=== PATIENT | male | born 1995 | race Caucasian/White ===

== ENCOUNTER 2017-11-02 00:43 | Emergency (ER) | payer SELFPAY ==
[~2017-11-02] VITALS: Ht 167.6 cm; Wt 87.7 kg
[2017-11-02] MEDS ORDERED: MECLIZINE 25MG TABLET PO ONE (01:45)
[2017-11-02 01:51] LABS: BASOPHILS % 0.6 % (0.0-2.0); EOSINOPHILS % 4.3 % (0.0-5.0); HEMATOCRIT. 43.1 % (42.0-52.0); HEMOGLOBIN. 14.7 g/dL (14.0-18.0); LYMPHOCYTES % 26.9 % (20.0-50.0); MEAN CORPUSCULAR HEMOGLOBIN 29.9 pg (28.0-32.0); MEAN CORPUSCULAR VOLUME 87.8 fL (80.0-94.0); MEAN PLATELET VOLUME 9.2 fl (7.4-10.4); NEUTROPHILS % 58.2 % (40.0-76.0); PLATELET 286 x1000/uL (130-400); RED BLOOD CELL COUNT 4.92 mill/uL (4.7-6.1); RED CELL DISTRIBUTION WIDTH 12.8 % (11.6-14.6)
[2017-11-02 01:54] LABS: CHLORIDE 106 mEq/L (98-107)
[2017-11-02 02:00] LABS: D-DIMER < 0.19 mg/L FEU (<0.50); INR 1.1; PARTIAL THROMBOPLASTIN TIME 26.7 sec (23.4-31.0)
[2017-11-02 04:16] VITALS: BP 107/60
== END 2017-11-02 04:18 | disposition home or self-care (01) ==
LOC: ER 00:43
DX: R42 Dizziness and giddiness (principal); R00.2 Palpitations
CPT/HCPCS: 36415; 71045; 80053; 83880; 84443; 85025; 85379; 85610; 85730; 93005; 99285; Z7610; J8597

== ENCOUNTER 2022-11-24 19:34 | Emergency (ER) | payer SELFPAY ==
[~2022-11-24] VITALS: Ht 172.7 cm; Wt 93.0 kg
[2022-11-24] MEDS ORDERED: KETOROLAC 60MG/2ML VIAL IM ONE (20:30)
[2022-11-24] MEDS ORDERED: IBUP-2028 MT (21:07)
[2022-11-24 21:34] VITALS: BP 127/78
== END 2022-11-24 21:35 | disposition home or self-care (01) ==
LOC: ER 19:34
DX: S46.911A Strain of unspecified muscle, fascia and tendon at shoulder and upper arm level, right arm, initial encounter (principal); R07.81 Pleurodynia; X58.XXXA Exposure to other specified factors, initial encounter; Y93.89 Activity, other specified; Y92.89 Other specified places as the place of occurrence of the external cause; Y99.8 Other external cause status
CPT/HCPCS: 93005; 96372; 99283; J1885